=== PATIENT | male | born 1970 | race Caucasian/White ===

== ENCOUNTER 2017-03-17 07:48 | Day surgery (SDC) | payer BC ==
[~2017-03-17] VITALS: Ht 175.3 cm; Wt 77.1 kg
[~2017-03-17 07:48] MED LIST: ATIVAN0.5 MG PO; BYSTOLIC20 MG PO; CIALIS20 MG PO; NORVASC5 MG PO; PROAIR HFA8.5 GM IH; TRAMADOL HCL50 MG PO; VIMOVO 500-201 EAC1 PO
== END 2017-03-17 09:49 | disposition home or self-care (01) ==
LOC: PAIN 07:48 → SDC 08:30 → PAIN 08:30
PROC: 01513ZZ Destruction of Cervical Nerve, Percutaneous Approach (ICD-10-PCS; principal; 2017-03-17)
DX: M47.812 Spondylosis without myelopathy or radiculopathy, cervical region (principal); M54.2 Cervicalgia; F41.9 Anxiety disorder, unspecified; M50.90 Cervical disc disorder, unspecified, unspecified cervical region; G89.29 Other chronic pain; I10 Essential (primary) hypertension; M19.90 Unspecified osteoarthritis, unspecified site; J45.909 Unspecified asthma, uncomplicated; E78.5 Hyperlipidemia, unspecified; Z87.891 Personal history of nicotine dependence
CPT/HCPCS: J1030; J2250; J3010; S0020